=== PATIENT | male | born 2000 | race Caucasian/White ===

== ENCOUNTER → 2024-08-15 14:00 | Outpatient (CLI) | payer OTHER, SELFPAY ==
--- NOTE | 2024-08-15 14:04 | DI.RAD.S_ITS ---
PROCEDURE: XR CHEST 2V INDICATIONS: SoB TECHNIQUE: 2 views of the chest were acquired. COMPARISON: None. FINDINGS: Surgical changes and devices: None. Lungs and pleura: Lungs are clear. No pleural effusions or pneumothorax. Mediastinum: Mediastinal contours are normal. Heart size is normal. Bones and chest wall: No suspicious bony abnormalities. Soft tissues appear unremarkable. IMPRESSION: No acute cardiopulmonary abnormality is seen. Dictated by: Delta Ramsey M.D. on 08/15/2024 at 16:00 Approved by: Delta Ramsey M.D. on 08/15/2024 at 16:01
== END ==
LOC: RESP 14:02
PROVIDERS: Referring Provider Chiropractor; Visit Provider Chiropractor
DX: R06.02 Shortness of breath (principal)
CPT/HCPCS: 71046; 94060